=== PATIENT | male | born 1960 | race Caucasian/White ===

== ENCOUNTER 2022-12-08 20:35 | Emergency (ER) | payer OTHER ==
[~2022-12-08] VITALS: Ht 185.4 cm; Wt 102.1 kg
--- NOTE | 2022-12-08 20:36 | NUR ---
PT BROUGHT TO BED 2 VIA [facility]
[2022-12-08 20:39] VITALS: BP 123/73; PULSE 65; RESP 11; TEMP 98.3; O2SAT 95
[2022-12-08 20:56] LABS: BASOPHILS # (AUTO) 0.1 K/uL (0.00-0.22); BASOPHILS % (AUTO) 0.8 % (0.0-2.0); EOSINOPHILS # (AUTO) 0.3 K/uL (0-0.4); EOSINOPHILS % (AUTO) 3.9 % (0.0-4.0); HEMATOCRIT 45.5 % (36-52); HEMOGLOBIN 15.9 g/dL (12.0-18.0); LYMPHOCYTES # (AUTO) 3.2 K/uL (2.0-11.5); LYMPHOCYTES % (AUTO) 42.2 % (20.5-51.1); MEAN CORPUSCULAR HEMOGLOBIN 33 pg (27-31); MEAN CORPUSCULAR HGB CONC 35 g/dL (33-37); MEAN CORPUSCULAR VOLUME 94.3 fL (80-94); MONOCYTES # (AUTO) 0.3 K/uL (0.8-1.0); MONOCYTES % (AUTO) 4.5 % (1.7-9.3); NEUTROPHILS # (AUTO) 3.7 K/uL (1.8-7.7); NEUTROPHILS % (AUTO) 48.6 % (42.2-75.2); PLATELET COUNT (AUTO) 209 K/uL (140-450); RED BLOOD CELL COUNT(AUTO) 4.82 MIL/uL (4.20-6.10); RED CELL DISTRIBUTION WIDTH 13.7 % (11.6-13.7); WHITE BLOOD COUNT (AUTO) 7.5 K/uL (4.8-10.8)
[2022-12-08 21:17] LABS: ALBUMIN 3.8 g/dL (3.4-5.0); ANION GAP 18.8 (8-16); CARBON DIOXIDE 21.2 mmol/L (21-32); CREATININE 1.1 mg/dL (0.6-1.3); TOTAL BILIRUBIN 0.3 mg/dL (0.0-1.0)
[2022-12-08] MEDS ORDERED: FUROSEMIDE 40 MG TAB PO ONE (21:40)
[2022-12-08 21:43] VITALS: BP 119/68; PULSE 61; RESP 11; O2SAT 89
[2022-12-08] MEDS ORDERED: IBUP-2213 PO (21:44)
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
--- NOTE | 2022-12-08 22:27 | NUR ---
pt ambulated to the bathroom with a steady gait
--- NOTE | 2022-12-08 22:34 | NUR ---
PT VERBALLY DISCHARGED AND REFUSING TO SIGN PAPERWORK. CHARGE NURSE DARRELL AWARE. PT HOWEVER ACCEPTED DISCHARGE PAPERWORK HANDED TO PATIENT. MENTAL RESOURCE PACKET PROVIDED TO PATIENT AND PATIENT UNDERSTANDS. AMBULATED TO LOBBY WITH A STEADY GAIT. ID BAND REMOVED. ALL QUESTIONS ANSWERED PRIOR TO DISCHARGE.
== END 2022-12-08 22:34 | disposition home or self-care (01) ==
LOC: MED 20:35
DX: R07.89 Other chest pain (principal); F10.10 Alcohol abuse, uncomplicated; I50.9 Heart failure, unspecified; I10 Essential (primary) hypertension; Y90.9 Presence of alcohol in blood, level not specified
CPT/HCPCS: 36415; 71045; 80053; 83880; 84484; 85025; 93005; 99285